=== PATIENT | male | born 1995 | race Caucasian/White ===

== ENCOUNTER 2019-09-23 20:46 | Emergency (ER) | payer OTHER, MEDICAID ==
[~2019-09-23] VITALS: Ht 170.2 cm; Wt 59.0 kg
[2019-09-23 20:52] VITALS: Ht 170.2 cm; Wt 59.0 kg
[2019-09-24 00:11] VITALS: BP 107/72
== END 2019-09-24 00:11 | disposition home or self-care (01) ==
LOC: ED 20:46
DX: S92.311A Displaced fracture of first metatarsal bone, right foot, initial encounter for closed fracture (principal); S92.321A Displaced fracture of second metatarsal bone, right foot, initial encounter for closed fracture; S92.331A Displaced fracture of third metatarsal bone, right foot, initial encounter for closed fracture; S92.341A Displaced fracture of fourth metatarsal bone, right foot, initial encounter for closed fracture; V49.49XA Driver injured in collision with other motor vehicles in traffic accident, initial encounter; Y93.I9 Activity, other involving external motion; Y92.488 Other paved roadways as the place of occurrence of the external cause; Y99.8 Other external cause status
CPT/HCPCS: Q0092